=== PATIENT | female | born 1970 | race Native Hawaiian/Other Pacific Islander ===

== ENCOUNTER 2017-01-24 06:35 | Outpatient (CLI) | payer BC ==
[2017-01-24 07:32] LABS: BASOPHILS % (AUTO) 0.4 % (0.0-2.0); EOSINOPHILS # (AUTO) 0.3 /CMM (0.0-0.7); EOSINOPHILS % (AUTO) 3.4 % (0.0-6.0); HEMATOCRIT 37 % (33-45); HEMOGLOBIN 12.3 g/dL (11.5-14.8); LYMPHOCYTES # (AUTO) 3.1 /CMM (0.8-4.8); MEAN CORPUSCULAR HEMOGLOBIN 29 PG (26.0-33.0); MEAN CORPUSCULAR HGB CONC 34 g/dl (31.0-36.0); MEAN CORPUSCULAR VOLUME 86 fL (82-100); MONOCYTES # (AUTO) 0.5 /CMM (0.1-1.30); NEUTROPHILS # (AUTO) 3.8 /CMM (1.8-8.9); NEUTROPHILS % (AUTO) 49.2 % (43.0-81.0); PLATELET COUNT (AUTO) 220 /CMM (150-450); RDW COEFFICIENT OF VARIATION 14.4 (11.5-15.0); RED BLOOD CELL COUNT(AUTO) 4.29 MIL/uL (4.0-5.2); WHITE BLOOD COUNT (AUTO) 7.8 K/uL (4.3-11.0)
[2017-01-24 07:45] LABS: C-REACTIVE PROTEIN 0.8 mg/dL (0.0-0.9); URIC ACID 6.5 mg/dL (2.6-7.2)
[2017-01-24 07:47] LABS: ALBUMIN 3.6 g/dL (3.4-5.0); BILIRUBIN,TOTAL 0.2 mg/dL (0.2-1.0); CALCIUM, SERUM 8.3 mg/dL (8.5-10.1); CREATININE 0.8 mg/dL (0.6-1.3); POTASSIUM 3.8 mmol/L (3.5-5.1); TOTAL PROTEIN, SERUM 7.3 g/dL (6.4-8.2)
== END 2017-01-24 23:59 | disposition home or self-care (01) ==
LOC: LAB 06:35
PROVIDERS: ATTEND Family Medicine
DX: M76.51 Patellar tendinitis, right knee (principal); M25.531 Pain in right wrist; E55.9 Vitamin D deficiency, unspecified; M25.461 Effusion, right knee; M25.731 Osteophyte, right wrist
CPT/HCPCS: 36415; 73110; 73562; 80053-TC; 82306; 84550-TC; 85025-TC; 85652-TC; 86140-TC; 86431-TC

== ENCOUNTER 2017-02-12 09:46 | Outpatient (CLI) | payer BC ==
[2017-02-12 10:33] LABS: CALCIUM, SERUM 8.2 mg/dL (8.5-10.1); CREATININE 0.7 mg/dL (0.6-1.3); POTASSIUM 3.8 mmol/L (3.5-5.1)
== END 2017-02-12 23:59 | disposition home or self-care (01) ==
LOC: LAB 09:46
PROVIDERS: ATTEND Family Medicine
DX: R73.9 Hyperglycemia, unspecified (principal)
CPT/HCPCS: 36415; 80048-TC; 80061-TC

== ENCOUNTER 2017-05-19 08:11 | Outpatient (CLI) | payer BC ==
[2017-05-19 09:10] LABS: BASOPHILS # (AUTO) 0.1 /CMM (0.0-0.2); BASOPHILS % (AUTO) 1.1 % (0.0-2.0); EOSINOPHILS # (AUTO) 0.3 /CMM (0.0-0.7); EOSINOPHILS % (AUTO) 3.1 % (0.0-6.0); HEMATOCRIT 36 % (33-45); HEMOGLOBIN 11.9 g/dL (11.5-14.8); LYMPHOCYTES # (AUTO) 2.4 /CMM (0.8-4.8); LYMPHOCYTES % (AUTO) 25.7 % (20.0-44.0); MEAN CORPUSCULAR HEMOGLOBIN 27 PG (26.0-33.0); MEAN CORPUSCULAR HGB CONC 33 g/dl (31.0-36.0); MEAN CORPUSCULAR VOLUME 83 fL (82-100); MONOCYTES # (AUTO) 0.6 /CMM (0.1-1.30); MONOCYTES % (AUTO) 6.5 % (2.0-12.0); NEUTROPHILS % (AUTO) 63.6 % (43.0-81.0); PLATELET COUNT (AUTO) 224 /CMM (150-450); RDW COEFFICIENT OF VARIATION 13.4 (11.5-15.0); WHITE BLOOD COUNT (AUTO) 9.5 K/uL (4.3-11.0)
[2017-05-19 09:24] LABS: ALBUMIN 3.9 g/dL (3.4-5.0); BILIRUBIN,TOTAL 0.3 mg/dL (0.2-1.0); CALCIUM, SERUM 8.6 mg/dL (8.5-10.1); CREATININE 0.6 mg/dL (0.6-1.3); POTASSIUM 4.3 mmol/L (3.5-5.1); TOTAL PROTEIN, SERUM 7.6 g/dL (6.4-8.2)
[2017-05-19 09:33] LABS: T4 (THYROXINE) 11.1 ug/dL (4.7-13.3); THYROID STIMULATING HORMONE 1.114 uIU/mL (0.358-3.74)
== END 2017-05-19 23:59 | disposition home or self-care (01) ==
LOC: LAB 08:11
PROVIDERS: ATTEND Family Medicine
DX: E11.9 Type 2 diabetes mellitus without complications (principal); E55.9 Vitamin D deficiency, unspecified
CPT/HCPCS: 36415; 80053-TC; 80061-TC; 82306; 84436-TC; 84443-TC; 85025-TC

== ENCOUNTER 2017-09-24 08:49 | Emergency (ER) | payer BC, OTHER ==
[~2017-09-24] VITALS: Ht 160 cm; Wt 76.2 kg
[2017-09-24 09:12] VITALS: BP 135/73
[2017-09-24] MEDS ORDERED: IBUPROFEN 600 MG TABLET PO ONE (09:29)
[2017-09-24] MEDS ORDERED: IBUPROFEN 400 MG TABLET PO ONE (09:30)
--- NOTE | 2017-09-24 09:32 | NUR ---
XRAY AT BEDSIDE
--- NOTE | 2017-09-24 10:40 | NUR ---
CALLED [facility] [phone] RADIO MD GALLEGOS WILL CALL US BACK
--- NOTE | 2017-09-24 11:51 | NUR ---
WAITING FOR CTSCAN
== END 2017-09-24 15:20 | disposition home or self-care (01) ==
LOC: ER 08:59
DX: S63.502A Unspecified sprain of left wrist, initial encounter (principal); M19.032 Primary osteoarthritis, left wrist; F17.200 Nicotine dependence, unspecified, uncomplicated; X58.XXXA Exposure to other specified factors, initial encounter; Y93.89 Activity, other specified; Y92.238 Other place in hospital as the place of occurrence of the external cause; Y99.0 Civilian activity done for income or pay
CPT/HCPCS: 29125; 73110; 73200; 99284; A4606; Z7610

== ENCOUNTER 2018-06-21 17:45 | Inpatient (IN) | payer BC, OTHER ==
[~2018-06-21] VITALS: Ht 160 cm; Wt 79.8 kg
--- NOTE | 2018-06-21 17:55 | NUR ---
PT CAME IN WITH C/O HEADACHE X YESTERDAY, VAGINAL BLEEDING SINCE MAY 09, 2018. SEEN BY FOR EVAL. PT AAOX4. DENIES TRAUMA. VSS. SAFETY AND COMFORT MEASURES PROVIDED. WILL MONITOR.
[2018-06-21] MEDS ORDERED: ONDANSETRON HCL/PF 4 MG/2 ML VIAL ONE (18:15)
[2018-06-21] MEDS ORDERED: KETOROLAC TROMETHAMINE 15 MG/ML VIAL ONE (18:15)
[2018-06-21 18:23] LABS: BASOPHILS % (AUTO) 0.5 % (0.0-2.0); EOSINOPHILS % (AUTO) 2.3 % (0.0-6.0); LYMPHOCYTES # (AUTO) 1.8 /CMM (0.8-4.8); LYMPHOCYTES % (AUTO) 38.6 % (20.0-44.0); MEAN CORPUSCULAR HEMOGLOBIN 20 PG (26.0-33.0); MEAN CORPUSCULAR HGB CONC 36 g/dl (31.0-36.0); MEAN CORPUSCULAR VOLUME 55 fL (82-100); MONOCYTES # (AUTO) 0.4 /CMM (0.1-1.30); MONOCYTES % (AUTO) 7.7 % (2.0-12.0); NEUTROPHILS # (AUTO) 2.4 /CMM (1.8-8.9); NEUTROPHILS % (AUTO) 50.9 % (43.0-81.0); PLATELET COUNT (AUTO) 192 /CMM (150-450); RDW COEFFICIENT OF VARIATION 18.5 (11.5-15.0); WHITE BLOOD COUNT (AUTO) 4.7 K/uL (4.3-11.0)
[2018-06-21 18:24] LABS: RED BLOOD CELL COUNT(AUTO) 1.86 MIL/uL (4.0-5.2)
--- NOTE | 2018-06-21 18:26 | NUR ---
IV ACCESS STARTED. BLOOD DRAWN FOR LABS. MEDICATED ORDERED.
[2018-06-21 18:28] LABS: HEMATOCRIT 10 % (33-45); HEMOGLOBIN 3.6 g/dL (11.5-14.8)
[2018-06-21 18:28] LABS: APPEARANCE,URINE Clear (CLEAR); BILIRUBIN,URINE Negative (NEGATIVE); BLOOD, URINE Large Ery/uL (NEGATIVE); COLOR,URINE Dark (YELLOW); KETONES,URINE Negative (NEGATIVE); LEUKOCYTE ESTERASE ,URINE Negative (NEGATIVE); NITRITE, URINE Negative (NEGATIVE); PH,URINE 6.5 (5.0-8.0); PROTEIN,URINE 30 mg/dl (NEGATIVE); UGLUCOSE Negative (NEGATIVE); UROBILINOGEN,URINE 0.2 EU/dL (0.2)
[2018-06-21 18:29] LABS: CARBON DIOXIDE 25 mmol/L (21-32); CHLORIDE 106 mmol/L (98-107); CREATININE 0.6 mg/dL (0.6-1.3); GLUCOSE 88 mg/dL (74-106); POTASSIUM 3.9 mmol/L (3.5-5.1); SODIUM SERUM 138 mmol/L (136-145); UREA NITROGEN, BLOOD 9 mg/dL (7-18)
[2018-06-21] MEDS ORDERED: IV NS 0.9% 1,000 ML BAG IV ONE (18:30)
[2018-06-21] MEDS ORDERED: ONDANSETRON HCL/PF 4 MG/2 ML VIAL IVP ONE (18:30)
[2018-06-21] MEDS ORDERED: KETOROLAC TROMETHAMINE INJ 30 MG/ML VIAL IV ONE (18:30)
[2018-06-21 18:34] LABS: ALANINE AMINOTRANSFERASE 17 U/L (12-78); ALBUMIN 3.2 g/dL (3.4-5.0); ALKALINE PHOSPHATASE 57 U/L (46-116); ASPARTATE AMINOTRANSFERASE 17 U/L (15-37); BILIRUBIN,DIRECT 0.1 mg/dL (0.0-0.2); BILIRUBIN,TOTAL 0.3 mg/dL (0.2-1.0); LIPASE 212 U/L (73-393); TOTAL PROTEIN, SERUM 6.7 g/dL (6.4-8.2)
[2018-06-21 18:36] LABS: TROPONIN I < 0.017 ng/mL (0.00-0.056)
--- NOTE | 2018-06-21 18:38 | NUR ---
PT UPDATED WITH POC ABOUT BLOOD TRANSFUSION VERBALIZES UNDERSTANDING. PT SIGNED CONSENT. ALL QUESTIONS ANSWERED.
[2018-06-21 18:39] LABS: BACTERIA,URINE Rare /HPF (None Seen); RBC,URINE 51-80 /HPF (0-2); SQUAMOUS EPITHELIAL CELL,UR Rare /HPF (None Seen); WBC,URINE NONE SEEN /HPF (0-3)
--- NOTE | 2018-06-21 18:54 | NUR ---
DR. KUMAR WAS PAGED.
--- NOTE | 2018-06-21 19:00 | NUR ---
REPORT RECEIVED FROM JUICE MARIE FOR MONET.
[2018-06-21 19:23] LABS: LYMPHOCYTES % (MANUAL) 29 % (16-48); MONOCYTES % (MANUAL) 7 % (0-11.0); NEUTROPHILS % (MANUAL) 64 (42-76)
--- NOTE | 2018-06-21 19:30 | NUR ---
CALLED [employer] SPECIAL SHOPPER WAS PAGED.
[2018-06-21 20:00] VITALS: BP 139/63
[2018-06-21] MEDS ORDERED: MAGNESIUM HYDROXIDE 30 ML UDC PO PRN (20:00)
[2018-06-21] MEDS ORDERED: ZOLPIDEM TARTRATE 5 MG TABLET PO PRN (20:00)
[2018-06-21] MEDS ORDERED: HYDROCODONE/APAP 5/325MG 1 EACH TABLET PO PRN (20:00)
[2018-06-21] MEDS ORDERED: MAG HYDROX/AL HYDROX/SIMETH 30 ML UDC PO PRN (20:00)
[2018-06-21] MEDS ORDERED: ACETAMINOPHEN 325 MG TABLET PO PRN (20:00)
[2018-06-21] MEDS ORDERED: ONDANSETRON HCL/PF 4 MG/2 ML VIAL IVP PRN (20:00)
[2018-06-21] MEDS ORDERED: Z GUARD REMEDY 2 OZ OINT TP PRN (20:00)
--- NOTE | 2018-06-21 20:00 | NUR ---
PT ASSIGNED TO BED 118-1
--- NOTE | 2018-06-21 20:00 | NUR ---
1 UNIT PRBC'S STARTED, VERIFIED WITH 2ND RN. SEE BLOOD TRANSFUSION SHEET AND NURSES NOTE IN INTERVENTION.
--- NOTE | 2018-06-21 20:19 | NUR ---
REPORT GIVEN TO JUICE RIVERA FOR MONET.
--- NOTE | 2018-06-21 20:19 | NUR ---
RN NOTES RECEIVED REPORT FROM [facility] COURT ADMINISTRATORJUICE SIM
--- NOTE | 2018-06-21 20:26 | NUR ---
RN NOTES REPORT GIVEN TO JUICE VILLELA FOR PATIENT'S MONET
[2018-06-21 20:37] VITALS: BP 139/63
--- NOTE | 2018-06-21 20:37 | NUR ---
NEON MOLDER NOTE RECEIVED PATIENT FROM ER, AOX4, SPEECH CLEAR, ABLE TO MAKE NEEDS KNOWN, RECEIVING 1 UNIT PRBC VIA RAC #18G, PT TO RECEIVE TOTAL OF 3 UNITS PRBC, DENIES PAIN, NO FEVER NOTED, NO S/SX OF RESPIRATORY OR CARDIAC DISTRESS, ON ROOM AIR, AMBULATORY, SKIN IS DRY AND INTACT, ON TELE SR, BBB, 1ST DEGREE AV BLOCK, EDUCATED REVERSE LOGISTICS ANALYST LIGHT USE, BED IN LOW LOCKED POSITION, SAFETY MAINTAINED AT ALL TIMES, WILL CONTINUE TO MONITOR FOR ANY CHANGES.
--- NOTE | 2018-06-21 20:47 | NUR ---
PT TRANSPORTED VIA STRETCHER TO [facility] ON FISH INSPECTOR WITH RN PER ACLS PROTOCOL. VSS. BLOOD TRANSFUSING TO FLOOR.
[2018-06-21 22:18] VITALS: BP 106/50
[2018-06-21 22:33] VITALS: BP 109/69
[2018-06-21 23:01] VITALS: BP 112/51
[2018-06-22] VITALS (17 sets, daily range): BP systolic 96–142; BP diastolic 41–81
--- NOTE | 2018-06-22 07:10 | NUR ---
BOBBIN HANDLER NOTE REPORT GIVEN TO AM NURSE, PATIENT RESTING COMFORTABLY IN BED, AOX3, NO RESPIRATORY OR CARDIAC DISTRESS, INFUSED 4 UNITS OF PRBC, NO ADVERSE REACTIONS NOTED, SAFETY MAINTAINED AT ALL TIMES, BED IN LOW LOCKED POSITION, CALL LIGHT WITHIN REACH.
--- NOTE | 2018-06-22 07:15 | NUR ---
ELECTRON GUN INSPECTOR INITIAL NOTES RECEIVED REPORT AND PATEINT FROM PM NURSE, A&O X4 GERMAN SPEAKING, ON ROOM AIR SATURATING ABOVE 97%, NO SOB OR ACUTE DISTRESS NOTED, ON TELE MONITOR SINUS RYTHME HEART RATE 61, RIGHT AC 18G IV SITE INTACT AND PATENT NO INFILTRATION NOTED, PATEINT COMFORTABLE AND PROVIDED SOME OB PADS FOR BLEEDING, ALL SAFETY MEASURES INITIATED, WILL CONTINUE TO MONITOR.
[2018-06-22 08:19] LABS: HEMATOCRIT 28 % (33-45); HEMOGLOBIN 8.2 g/dL (11.5-14.8); MEAN CORPUSCULAR HEMOGLOBIN 22 PG (26.0-33.0); MEAN CORPUSCULAR HGB CONC 30 g/dl (31.0-36.0); MEAN CORPUSCULAR VOLUME 73 fL (82-100); PLATELET COUNT (AUTO) 242 /CMM (150-450); RED BLOOD CELL COUNT(AUTO) 3.79 MIL/uL (4.0-5.2); WHITE BLOOD COUNT (AUTO) 7.5 K/uL (4.3-11.0)
[2018-06-22 08:30] LABS: CALCIUM, SERUM 7.7 mg/dL (8.5-10.1); CREATININE 0.6 mg/dL (0.6-1.3); MAGNESIUM 2.1 mg/dL (1.8-2.4); PHOSPHORUS 3.1 mg/dL (2.5-4.9)
[2018-06-22 08:55] LABS: EOSINOPHILS % (MANUAL) 1 % (0-4); LYMPHOCYTES % (MANUAL) 15 % (16-48); MONOCYTES % (MANUAL) 2 % (0-11.0); NEUTROPHILS % (MANUAL) 82 (42-76)
[2018-06-22 13:17] LABS: IRON, SERUM 125 ug/dl (50-175); TOTAL IRON BINDING CAPACITY 419 ug/dl (250-450)
[2018-06-22 13:30] LABS: FERRITIN 5 ng/mL (8-388)
[2018-06-22] MEDS: PANTOPRAZOLE 40 MG VIAL IV SCH (14:28)
--- NOTE | 2018-06-22 14:48 | NUR ---
TOBACCO ACREAGE MEASURER NOTES NEED TO INFORM DR LAZO PATIENT HAD 10 POUND WEIGHT LOSS IN THE PAST MONTH.
--- NOTE | 2018-06-22 18:28 | NUR ---
SPACE ENGINEER NOTES PATIENT RESTING IN BED WITH NO ACUTE CHANGES NOTED, STOOL SAMPLE COLLECTED AND SENT TO LAB, ALL NEEDS MET, WILL CONTINUE TO MONITOR AND ENDORSE TO PM NURSE.
--- NOTE | 2018-06-22 19:15 | NUR ---
REGULATORY ANALYST NOTE PATIENT IS AOX4, SPEECH CLEAR, ABLE TO MAKE NEEDS KNOWN, ON ROOM AIR, NO S/SX OF CARDIAC OR RESPIRATORY DISTRESS, RAC #18G, PT TO RECEIVE TOTAL OF 3 UNITS PRBC, DENIES PAIN, NO FEVER NOTED, NO S/SX OF RESPIRATORY OR CARDIAC DISTRESS, ON ROOM AIR, AMBULATORY, SKIN IS DRY AND INTACT, ON TELE SR, BBB, 1ST DEGREE AV BLOCK, EDUCATED CLINICAL PSYCHOLOGY TEACHER LIGHT USE, BED IN LOW LOCKED POSITION, SAFETY MAINTAINED AT ALL TIMES, WILL CONTINUE TO MONITOR FOR ANY CHANGES. Addendum: 06/22/18 at 1932 by MANOHAR COATES RN REGULATORY ANALYST NOTE ABOVE NOTE SAVED IN ERROR PATIENT IS AOX4, SPEECH CLEAR, ABLE TO MAKE NEEDS KNOWN, ON ROOM AIR, NO S/SX OF CARDIAC OR RESPIRATORY DISTRESS, RAC #18G, PATENT FLUSHING WELL, SITES ARE CLEAN AND DRY, AMBULATORY, SKIN IS DRY AND INTACT, ON TELE SR, REPORTS CONTINUES TO HAVE VAGINAL BLEEDING, DENIES ANY DIZZINESS, SAFETY MAINTAINED AT ALL TIMES, CALL LIGHT WITHIN REACH, BED IN LOW LOCKED POSITION, WILL CONTINUE TO MONITOR FOR ANY CHANGES.
[2018-06-22 21:33] LABS: OCCULT BLOOD STOOL NEGATIVE (NEGATIVE)
[2018-06-23] VITALS: BP 128/69
[2018-06-23 04:00] VITALS: BP 118/57
[2018-06-23 06:41] LABS: HEMATOCRIT 25 % (33-45); HEMOGLOBIN 7.7 g/dL (11.5-14.8); MEAN CORPUSCULAR HEMOGLOBIN 23 PG (26.0-33.0); MEAN CORPUSCULAR HGB CONC 31 g/dl (31.0-36.0); MEAN CORPUSCULAR VOLUME 74 fL (82-100); PLATELET COUNT (AUTO) 209 /CMM (150-450); RED BLOOD CELL COUNT(AUTO) 3.35 MIL/uL (4.0-5.2); WHITE BLOOD COUNT (AUTO) 8.4 K/uL (4.3-11.0)
[2018-06-23 07:02] LABS: FERRITIN 17 ng/mL (8-388)
[2018-06-23 07:50] LABS: IRON, SERUM 20 ug/dl (50-175); TOTAL IRON BINDING CAPACITY 415 ug/dl (250-450)
[2018-06-23 08:00] VITALS: BP_SYST 124; BP_DIAS 74; BP_DIAS 79
--- NOTE | 2018-06-23 08:00 | NUR ---
TELE NURSE NOTES RECEIVED PATIENT, AOX4,ABLE TO MAKE NEEDS KNOWN, NO SHORTNESS OF BREATH NOTED. ON ROOM AIR, AFEBRILE, ON TELE SINUS RHYTHM, SKIN DRY AND INTACT,IV LINE G 18 ON THE RIGHT AC, INTACT AND PATENT ON FLUSHING. EDUCATED MARKET DEVELOPMENT SPECIALIST LIGHT USE, CALL LIGHT WITHIN REACH, BED IN LOW LOCKED POSITION, SAFETY MAINTAINED AT ALL TIMES, WILL CONTINUE TO MONITOR FOR ANY CHANGES.
[2018-06-23 08:02] LABS: BAND % (MANUAL) 2 % (0.0-5.0); EOSINOPHILS % (MANUAL) 4 % (0-4); LYMPHOCYTES % (MANUAL) 19 % (16-48); MONOCYTES % (MANUAL) 5 % (0-11.0); NEUTROPHILS % (MANUAL) 70 (42-76)
[2018-06-23] MEDS ORDERED: FERROUS SULFATE (325 MG) 325 MG/TAB TABLET PO SCH (10:30)
--- NOTE | 2018-06-23 10:30 | NUR ---
TELE NURSE NOTES SEEN AND EXAMINED BY DR. VELEZ WITH NEW ORDERS. ORDERS CARRIED OUT.
[2018-06-23 12:00] VITALS: BP 127/76
[2018-06-23] MEDS: PANTOPRAZOLE 40 MG VIAL IV SCH (13:25)
[2018-06-23] MEDS ORDERED: SOD FERRIC GLUC 125 MG in IV NS 0.9% 100 ML IV SCH (14:00)
--- NOTE | 2018-06-23 15:45 | NUR ---
TELE NURSE NOTES INFORMED DR. VELEZ THAT PATIENTS HAVE DESIRES TO BE DISCHARGED TODAY. INFORMED ALSO THAT PATIENT HAVE RECEIVED FIRST OF 5 BAG OF FERRLECIT ORDERED. AND SINCE PATIENT CLAIMS NO DIZZINESS AT THE MOMENT, MD OK TO DISCHARGED. NO PRESCRIPTION OTHER THAN OVER THE COUNTER IRON MEDICATION. MD ALSO OK TO TELEPHONE ORDER THE DISCHARGE. DONE REQUESTED.
[2018-06-23 16:00] VITALS: BP 113/47
--- NOTE | 2018-06-23 16:30 | NUR ---
TELE NURSE NOTES PATIENT DISCHARGED TO HOME, AMBULATORY ACCOMPANIED BY SONPEDRO. ON STABLE CONDITION. GAIT STEADY NO COMPLAINTS OF DIZZINESS. ALL QUESTIONES ADDRESSED, MEDICATION AND DISCHARGE INSTRUCTION GIVEN TO PATIENT. BELONGINGS ACCOUNTED FOR.
[2018-06-23 17:12] LABS: HEMATOCRIT 26 % (33-45); HEMOGLOBIN 7.7 g/dL (11.5-14.8); MEAN CORPUSCULAR HEMOGLOBIN 22 PG (26.0-33.0); MEAN CORPUSCULAR HGB CONC 30 g/dl (31.0-36.0); MEAN CORPUSCULAR VOLUME 73 fL (82-100); PLATELET COUNT (AUTO) 229 /CMM (150-450); RED BLOOD CELL COUNT(AUTO) 3.55 MIL/uL (4.0-5.2)
[2018-06-23 17:53] LABS: BAND % (MANUAL) 2 % (0.0-5.0); LYMPHOCYTES % (MANUAL) 18 % (16-48); MONOCYTES % (MANUAL) 8 % (0-11.0); NEUTROPHILS % (MANUAL) 72 (42-76)
== END 2018-06-23 16:45 | disposition home or self-care (01) | DRG 760 ==
LOC: ER 17:46 → TELE-TD 20:11 → TELE1 21:00
PROVIDERS: ADMIT Family Medicine; ATTEND Family Medicine
PROC: 30233N1 Transfusion of Nonautologous Red Blood Cells into Peripheral Vein, Percutaneous Approach (ICD-10-PCS; principal; 2018-06-21)
DX: N92.4 Excessive bleeding in the premenopausal period (principal); E44.1 Mild protein-calorie malnutrition; D50.0 Iron deficiency anemia secondary to blood loss (chronic); E66.9 Obesity, unspecified; Z98.890 Other specified postprocedural states; Z87.891 Personal history of nicotine dependence; Z98.891 History of uterine scar from previous surgery; Z68.31 Body mass index [BMI] 31.0-31.9, adult
CPT/HCPCS: 36415; 71045-TC; 76856-TC; 80048-TC; 80061-TC; 80076-TC; 81000-TC; 82272-TC; 82728-TC; 83540-TC; 83690-TC; 83735-TC; 84100-TC; 84484-TC; 84703-TC; 85025-TC; 86850-TC; 86921-TC; 87081-TC; A4606; C9113; J1885; J2405; J2916; J7030; J7050; P9016-BL; Z7610